=== PATIENT | female | born 1960 | race Caucasian/White ===

== ENCOUNTER 2021-12-10 05:41 | Emergency (ER) | payer BC ==
[2021-12-10 08:21] LABS: HEMOGLOBIN 14.4 gm/dl (12.3-15.3); RED BLOOD COUNT 4.4 M/UL (4.00-5.10); WHITE BLOOD COUNT 6.2 K/UL (4.5-11.0)
[2021-12-10 08:50] LABS: BUN/CREATININE RATIO 21 (0-10)
== END 2021-12-10 10:09 | disposition home or self-care (01) ==
LOC: ER1 05:41
PROVIDERS: Physician Assistant
DX: M79.605 Pain in left leg (principal); I10 Essential (primary) hypertension; Z90.710 Acquired absence of both cervix and uterus
CPT/HCPCS: 73564; 80053; 85025; 85379; 96372; 99283; J1885